=== PATIENT | male | born 1975 | race Caucasian/White ===

== ENCOUNTER 2019-02-19 17:22 | Emergency (ER) | payer OTHER ==
[~2019-02-19] VITALS: Ht 165.1 cm; Wt 95.3 kg
== END 2019-02-19 22:14 | disposition home or self-care (01) ==
LOC: ER 17:22
DX: S61.421A Laceration with foreign body of right hand, initial encounter (principal); W25.XXXA Contact with sharp glass, initial encounter; Y93.89 Activity, other specified; Y92.098 Other place in other non-institutional residence as the place of occurrence of the external cause; Y99.8 Other external cause status